=== PATIENT | male | born 1950 | race Caucasian/White ===

== ENCOUNTER 2018-01-14 07:39 | Day surgery (SDC) | payer MEDICARE, BC ==
[~2018-01-14 07:39] MED LIST: Lactated Ringers 1,000 ML IV SCH
[2018-01-14] MEDS ORDERED: Propofol 200 MG/20 ML SDV ONE (08:40)
[2018-01-14] MEDS ORDERED: fentaNYL 100 MCG/2 ML SDV ONE (08:40)
[2018-01-14 10:21] VITALS: BP 91/43
--- NOTE | 2018-01-17 09:01 | OR ---
PREOPERATIVE DIAGNOSIS: History of polyps. POSTOPERATIVE DIAGNOSES: 1. Small cecal polyp. 2. Sigmoid diverticulosis. PROCEDURE PROPOSED: Total flexible colonoscopy. PROCEDURE DONE: Total flexible colonoscopy with polypectomy x1. INDICATION: This is a 67-year-old gentleman, who comes in for 5 year followup from a history of polyps. He denies any symptomatology, and he has a negative family history for colon cancer. TECHNIQUE: The patient was brought to the endoscopy suite, placed in left lateral decubitus position. He was sedated per [employer] with propofol. The flexible video colonoscope was then passed transanally and under visualization and advanced to the cecum. In the cecal area, he was found to have a very tiny polyp removed with one bite of the cold biopsy forceps. The remainder of the ascending, transverse, and descending colon was unremarkable. The sigmoid colon revealed mild diverticulosis and the rectum was normal. There was no evidence of any other polyps or colitis, and the scope was then withdrawn. The patient tolerated the procedure well. FINAL IMPRESSION: 1. Cecal polyp x1, removed. 2. Sigmoid diverticulosis. PLAN: He will be sent a letter with pathology report. I feel he should continue with colonoscopies every 5 years hereafter. SCM: 01/14/2018 09:49:53 MODL: 01/14/2018 15:54:42 /[id number]
--- NOTE | 2018-01-21 07:47 | LETTER ---
01/19/2018 Edgardo Goode RE: DEGARDO ESTRADA ELINA : 1950 Dear Mr. Goode: The polyp removed from your colon was a benign tubular adenoma. This is considered a precancerous type polyp, and with your history of polyps, I feel that you should continue with colonoscopies every 5 years hereafter. Respectfully,
== END 2018-01-14 10:45 | disposition home or self-care (01) ==
LOC: VM.SDS 07:39
PROVIDERS: ATTEND Surgery
DX: Z12.11 Encounter for screening for malignant neoplasm of colon (principal); D12.0 Benign neoplasm of cecum; K57.30 Diverticulosis of large intestine without perforation or abscess without bleeding; I10 Essential (primary) hypertension; E66.9 Obesity, unspecified; Z86.010 Personal history of colon polyps; Z87.891 Personal history of nicotine dependence; Z79.82 Long term (current) use of aspirin; Z79.899 Other long term (current) drug therapy; Z68.28 Body mass index [BMI] 28.0-28.9, adult; Z88.2 Allergy status to sulfonamides
CPT/HCPCS: 00812; 45380; 88305; J2704; J3010; J7120

== ENCOUNTER 2023-06-17 09:25 | Day surgery (SDC) | payer MEDICARE, BC ==
[2023-06-17] MEDS ORDERED: Propofol 200 MG/20 ML SDV ONE ×2 (11:05→11:21)
[2023-06-17] MEDS ORDERED: fentaNYL 100 MCG/2 ML SDV ONE (11:05)
[2023-06-17 12:29] VITALS: BP 145/77; PULSE 65
== END 2023-06-17 13:06 | disposition home or self-care (01) ==
LOC: VM.SDS 09:25
PROVIDERS: ATTEND Family Medicine
DX: Z12.11 Encounter for screening for malignant neoplasm of colon (principal); D12.8 Benign neoplasm of rectum; K63.5 Polyp of colon; K57.30 Diverticulosis of large intestine without perforation or abscess without bleeding; Z86.010 Personal history of colon polyps; E78.5 Hyperlipidemia, unspecified; F10.10 Alcohol abuse, uncomplicated; R97.20 Elevated prostate specific antigen [PSA]; I10 Essential (primary) hypertension; E66.9 Obesity, unspecified; Z68.32 Body mass index [BMI] 32.0-32.9, adult; Z79.82 Long term (current) use of aspirin; Z79.899 Other long term (current) drug therapy
CPT/HCPCS: 00811; 88305; J2704; J3010; J7120